=== PATIENT | male | born 1945 | race Caucasian/White ===

== ENCOUNTER → 2018-12-31 | Outpatient (CLI) | payer OTHER, SELFPAY ==
[~2018-12-31] VITALS: Ht 172.7 cm; Wt 109.8 kg
[~2018-12-31] MED LIST: ASPIRIN325 PO; CARVEDILOL25 MG PO; CLOPIDOGREL75 MG PO; CRESTOR20 MG PO; EFFIENT10 MG PO; FISH OIL 1,0001 EAC5 PO; FLEXERIL PO; FLOMAX0.4 MG PO; FUROSEMIDE 20 M20 M1 PO; GEMFIBROZIL 60600 MG PO; GLUCOSAMINE-CH1 EA36 PO; HYDRALAZINE 2525 MG PO; IMDUR 30 MG TAB30 M1 PO; K-DUR10 MEQ PO; LANTUSSOLASTAR; LISINOPRIL40 MG PO; NITROQUICK0.4 MG SL; NITROSTAT0.4 M1 SL; NOVOLOG100 UNIT/1 SQ; OMEPRAZOLE 20 M20 M1 PO; PLAVIX 75 MG TA75 M1 PO; ZETIA10 MG PO
[2018-12-31 08:07] VITALS: BP 162/50
[2018-12-31 08:23] LABS: HEMATOCRIT 33.3 % (42.0-52.0); HEMOGLOBIN 11.5 gm/dL (14.0-18.0); MCH 32.7 pg (26.0-34.0); MCHC 34.7 g/dL (28.0-37.0); MCV 94.2 fL (80.0-100.0); RBC 3.53 mil/uL (4.50-6.00); RDW 14.6 % (10.5-14.5)
[2018-12-31 08:30] LABS: CALCIUM 8.9 mg/dL (8.5-10.1); CREATININE 1.7 mg/dL (0.7-1.3); POTASSIUM 4.1 mmol/L (3.5-5.1)
== END | disposition home or self-care (01) ==
LOC: SPEC 07:18
PROVIDERS: Nuclear Medicine Nuclear Cardiology
DX: I70.213 Atherosclerosis of native arteries of extremities with intermittent claudication, bilateral legs (principal); I70.0 Atherosclerosis of aorta; I70.218 Atherosclerosis of native arteries of extremities with intermittent claudication, other extremity; I25.10 Atherosclerotic heart disease of native coronary artery without angina pectoris; I10 Essential (primary) hypertension; I70.1 Atherosclerosis of renal artery; E78.5 Hyperlipidemia, unspecified; E11.9 Type 2 diabetes mellitus without complications; Z95.1 Presence of aortocoronary bypass graft; Z82.49 Family history of ischemic heart disease and other diseases of the circulatory system; I21.3 ST elevation (STEMI) myocardial infarction of unspecified site

== ENCOUNTER → 2020-04-25 | Outpatient (CLI) | payer OTHER, SELFPAY | LOC: SJCVCIMAG 14:57 | PROVIDERS: ATTEND Internal Medicine Cardiovascular Disease | DX: I65.23 Occlusion and stenosis of bilateral carotid arteries (principal); I45.10 Unspecified right bundle-branch block; R94.31 Abnormal electrocardiogram [ECG] [EKG]; I25.810 Atherosclerosis of coronary artery bypass graft(s) without angina pectoris; E11.9 Type 2 diabetes mellitus without complications; E78.00 Pure hypercholesterolemia, unspecified; I10 Essential (primary) hypertension; I70.0 Atherosclerosis of aorta; E78.1 Pure hyperglyceridemia; Z95.1 Presence of aortocoronary bypass graft; Z79.899 Other long term (current) drug therapy; Z79.4 Long term (current) use of insulin; Z87.891 Personal history of nicotine dependence ==

== ENCOUNTER → 2020-05-31 | Outpatient (CLI) | payer OTHER, SELFPAY | LOC: SJCVCIMAG 08:47 | PROVIDERS: ATTEND Internal Medicine Cardiovascular Disease | DX: I44.0 Atrioventricular block, first degree (principal); I45.10 Unspecified right bundle-branch block; I70.202 Unspecified atherosclerosis of native arteries of extremities, left leg; M79.604 Pain in right leg; I25.810 Atherosclerosis of coronary artery bypass graft(s) without angina pectoris; Z95.1 Presence of aortocoronary bypass graft; Z95.820 Peripheral vascular angioplasty status with implants and grafts; Z79.899 Other long term (current) drug therapy; Z88.8 Allergy status to other drugs, medicaments and biological substances ==

== ENCOUNTER → 2021-01-18 | Outpatient (CLI) | payer OTHER, SELFPAY | LOC: SJCVCIMAG 13:23 → SJCVC 13:23 | PROVIDERS: ATTEND Internal Medicine Cardiovascular Disease | DX: R94.31 Abnormal electrocardiogram [ECG] [EKG] (principal); I08.0 Rheumatic disorders of both mitral and aortic valves; I45.10 Unspecified right bundle-branch block; I49.3 Ventricular premature depolarization; E78.5 Hyperlipidemia, unspecified; I25.10 Atherosclerotic heart disease of native coronary artery without angina pectoris; I48.91 Unspecified atrial fibrillation; I35.0 Nonrheumatic aortic (valve) stenosis; I73.9 Peripheral vascular disease, unspecified; I10 Essential (primary) hypertension; E78.00 Pure hypercholesterolemia, unspecified; E11.9 Type 2 diabetes mellitus without complications; Z95.1 Presence of aortocoronary bypass graft; Z79.899 Other long term (current) drug therapy; Z79.4 Long term (current) use of insulin; Z88.8 Allergy status to other drugs, medicaments and biological substances; Z87.891 Personal history of nicotine dependence ==